=== PATIENT | male | born 1980 | race Caucasian/White ===

== ENCOUNTER 2020-01-30 15:34 | Emergency (ER) | payer OTHER, SELFPAY ==
[2020-01-30 15:35] VITALS: BP 130/98; PULSE 111; RESP 18; TEMP 36.2; O2SAT 96; O2SAT 97; BMI 36.4
--- NOTE | 2020-01-30 15:48 | ED.VIS.GEN ---
History of Present Illness Chief Complaint: Laceration Informant: Patient Onset: Today Context: Sudden Onset Timing: Continuous Quality: bleeding Location: scalp Current Severity: Moderate Maximum Severity: Moderate Worsened by: nothing Relieved by: nothing Associated Symptoms: denies Narrative: 39-year-old male presents with a scalp laceration. He was using a post digger, and he states that it bounced up and scraped the top of his head. This occurred about 3 hours ago. He is not having a headache and when this occurred he did not lose consciousness. He is not lightheaded or dizzy. He denies any nausea or vomiting. He denies any blurry vision double vision or loss of vision. He denies any weakness or paresthesias. He is not on blood thinners. His tetanus immunization was updated less than 5 years ago. He denies neck pain. He is not lightheaded or dizzy. He states that he has been unable to get the bleeding stopped. He denies any other injuries from this. Prior similar symptoms: No Recent Illness/Hospitalization: No Past Medical History - Allergies and Home Meds Allergies/Adverse Reactions: Allergies No Known Allergies Allergy (Verified 01/30/20 15:38) Primary Care Physician: [facility] Doctor,Out of [NON-STAFF] - Prior records reviewed: Yes Past Medical History: None Surgical History: noncontributory Lives: With Family Smoking Status: Never smoker Alcohol: Occasional Drugs: None Review of Systems All systems negative except as indicated General: Denies: Chills, Fever, Sweats Eyes: Denies: Visual changes - bilaterally, Diplopia ENT: Denies: Rhinorrhea, Sore throat Cardiovascular: Denies: Chest pain, Palpitations Respiratory: Denies: Dyspnea, Cough, Dyspnea on exertion Gastrointestinal: Denies: Abdominal pain, Nausea, Vomiting, Diarrhea, Melena, Hematochezia Genitourinary: Denies: Dysuria, Hematuria, Frequency Musculoskeletal: Denies: Neck pain, Back pain, Swelling, Extremity Pain Skin: Reports: Abrasions. Denies: Rash, Abscess, Wounds Neurological: Denies: Headache, Weakness, Numbness Physical Exam Vital Signs/Narrative: Vital Signs Temp Pulse Resp BP Pulse Ox 01/30/20 15:35 97.2 F L 111 H 18 130/98 H 96 Inital Vital Signs reviewed: Yes General: Well nourished, Well developed, No Acute Distress Head: Normocephalic, Atraumatic Eyes: Perrl, EOMI ENT: Moist mucous membranes, No rhinorrhea, TM's clear, - - Negative raccoon and floyd sign. Negative nasal septal hematoma and hemotympanum bilaterally. Negative for: Sinus tenderness Neck: Supple, Nontender, - - Nontender. Normal active range of motion.. Negative for: No lymphadenopathy, No JVD Cardiovascular: Regular rate, Regular rhythm, No murmurs Respiratory: No distress, CTA bilaterally, Chest nontender Abdomen: Soft, Nontender, Nondistended, Normal bowel sounds Back: Nontender, Normal Inspection Extremities: Nontender, No edema Skin: Normal color, No rash, Trauma - 3 cm laceration vertex of the scalp. It is linear. There is very mild active bleeding. Neurological: Alert, Oriented x3, Cranial nerves II-XII grossly intact, Normal Strength, Normal Sensation, Normal Gait, - - Patient has normal [id number] and [id number] Psychological: Normal affect, Normal Mood Diagnostic/Tx/Re-eval - Medical Decision Making Patient has a nonfocal neurological exam. The patient is Story head CT criteria negative. We mutually agreed upon foregoing CT imaging of brain but it was offered to him. Patient's wound was anesthetized locally with lidocaine with epinephrine. It was irrigated with sterile saline via pressure wash syringe. It was cleansed with chlorhexidine. It was explored. No foreign bodies are noted there is no arterial bleeding. It was closed with genoveva a total of 10 were used for approximation. Patient tolerated well. Discussed with patient proper wound care. Patient was given signs of infection to monitor for. Patient was advised to have these removed in 5 to 7 days. He was given return precautions. He was agreeable with plan of care and all questions were answered. Procedures - Lacerations No standard instances Length: 3 cm Depth: Skin Shape: Linear Prep: Sterile Conditions, Chlorhexadine Laceration repair: Debrideded, Irrigated, Lidocaine with epi, Local, Wound explored Irrigated (ml): 60 Number of Sutures/[place]: 10 - genoveva ED Disposition - Plan for ED Patient: Disposition: Home or Assisted Living Diagnosis: Scalp laceration, Closed head injury without loss of consciousness Instructions: ED Head Injury Adult, ED Laceration Scalp Sutures or [place] Referrals: Kev Arreguin MD [STAFF PHYSICIAN] - 7 Days for suture removal
--- NOTE | 2020-01-30 15:58 | ED.VISSUMM ---
- ER Visit Summary Date of Service: 01/30/20 Chief Complaint: [Scalp laceration] History of Present Illness: The patient is a 39 M [presents to the emergency department with a scalp laceration happened about 2-1/2 to 3 hours ago. Patient states that he was digging posts and the post digger bounced up as they drove it into the ground and struck him on top of the head. No loss of consciousness. Patient thinks his last tetanus shot was about 6 years ago. Patient denies neck pain. Denies headache. Patient states the bleeding would not stop so he came in to get evaluated.] Patient seen in conjunction with physician teachers' assistant Jarvis Rosenthal. Physical Examination: [HEENT-PERRLA, EOMI. Cranial nerves II through XII grossly intact. TMs clear. Mucous membranes moist. No adenopathy. Patient has a 3 cm laceration that is somewhat S shaped to the vertex of the scalp. The wound is well approximated. Small amount of blood oozing. No bony depressions or step-offs noted. Patient has no C-spine tenderness on palpation. Cardiovascular-regular rate and rhythm without murmur or ectopy Lungs-clear to auscultation, chest wall stable without crepitus or subcu emphysema Abdomen-normoactive bowel sounds, soft, nontender, no rebound or rigidity, no peritoneal signs. Extremities-intact ?4, normal range of motion, normal pulses, atraumatic] Test Results: [None indicated] Emergency Department Course and Treatment: [Laceration repair-see dictation by physician teachers' assistant.] Treatment Plan: [Patient to have genoveva removed in 10 days.] Disposition: [Discharged home in stable condition.] Patient advised to return if increasing pain, redness, swelling, purulent drainage, or condition should worsen anyway. Impression: [Scalp laceration 3 cm-simple repair with genoveva] This note was generated with [employer] dictation software. It may contain incorrect words, spelling, and punctuation that were not noted in review of the chart prior to signing ED Disposition - Plan for ED Patient: Referrals: [facility] Doctor,Out of [Primary Care Provider] -
[2020-01-30] MEDS: Diphth,Pertuss(Acell),Tet Vac 0.5 ML Vial IM (16:17)
== END 2020-01-30 16:35 | disposition home or self-care (01) ==
PROVIDERS: Emergency Provider Physician Assistant Medical
DX: S01.01XA Laceration without foreign body of scalp, initial encounter (principal); W22.8XXA Striking against or struck by other objects, initial encounter; Y93.9 Activity, unspecified; Y92.9 Unspecified place or not applicable; Y99.9 Unspecified external cause status; Z23 Encounter for immunization
CPT/HCPCS: 12002; 90471; 90715; 99283